=== PATIENT | male | born 2000 | race Caucasian/White ===

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

== ENCOUNTER 2020-10-22 15:24 | Emergency (ER) | payer OTHER ==
[~2020-10-22] VITALS: Ht 175.3 cm; Wt 86.2 kg
[2020-10-22 15:25] VITALS: BP 126/68
--- NOTE | 2020-10-22 15:45 | NUR ---
SEEN AND EXMAINED BY JULIETTE HUMPHREY
[2020-10-22] MEDS ORDERED: IBUP-1955 PO (16:45)
--- NOTE | 2020-10-22 17:18 | NUR ---
Patient discharged to home in stable condition. Written and verbal after care instructions given. Patient verbalizes understanding of instruction.
--- NOTE | 2020-10-22 17:18 | NUR ---
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
== END 2020-10-22 17:19 | disposition home or self-care (01) ==
LOC: ER 15:33
DX: S92.351A Displaced fracture of fifth metatarsal bone, right foot, initial encounter for closed fracture (principal); X50.1XXA Overexertion from prolonged static or awkward postures, initial encounter; Y93.01 Activity, walking, marching and hiking; Y92.89 Other specified places as the place of occurrence of the external cause; Y99.8 Other external cause status
CPT/HCPCS: 73610-TC; 73630-TC

== ENCOUNTER 2021-06-08 22:36 | Emergency (ER) | payer MEDICAID, OTHER ==
[~2021-06-08] VITALS: Ht 177.8 cm; Wt 86.2 kg
[~2021-06-08 22:36] MED LIST: IBUP-1955 PO
[2021-06-08 23:07] VITALS: BP 141/62
--- NOTE | 2021-06-08 23:10 | NUR ---
PT BIBS C/O FEVER,CHILLS, BODY ACHE, HEADACHE AND NO APPETITE X1DAY. PATIENT ALERT AND ORIENTED X3. AMBULATORY WITH NON LABORED BREATHING. PATIENT IN BED 19 ON MONITOR AND POX.
--- NOTE | 2021-06-08 23:14 | NUR ---
COVID AND FLU SWAB DONE AND SENT TO LAB
== END 2021-06-09 00:18 | disposition home or self-care (01) ==
LOC: ER 22:42
DX: B34.9 Viral infection, unspecified (principal); Z20.822 Contact with and (suspected) exposure to COVID-19
CPT/HCPCS: 87426; 87804; 99283; C9803

== ENCOUNTER 2022-03-16 22:28 | Emergency (ER) | payer MEDICAID ==
[~2022-03-16] VITALS: Ht 180.3 cm; Wt 96.6 kg
[2022-03-17] MEDS ORDERED: GUAIFENESIN/D-METHORPHAN HB 5 ML UDC PO ONE
--- NOTE | 2022-03-17 | NUR ---
BIBMOTHER. COUGH AND CONGESTION X 5 DAYS. FEVER X 2 DAYS. AWAKE AND ALERT BREATHING UNLABORED V/S WNL.
[2022-03-17] MEDS ORDERED: GUAIFENESIN/D-METHORPHAN HB 5 ML UDC ONE (00:02)
[2022-03-17] MEDS ORDERED: PSEUDOEPHEDRINE HCL 30 MG TABLET ONE ×2 (00:02→00:04)
--- NOTE | 2022-03-17 00:11 | NUR ---
covid, flu and rsv swab done
[2022-03-17] MEDS ORDERED: PSEUDOEPHEDRINE HCL 30 MG TABLET PO ONE ×2 (00:30)
[2022-03-17] MEDS ORDERED: BENZ-13 PO (01:11)
[2022-03-17] MEDS ORDERED: PSEU120T83 PO (01:11)
[2022-03-17] MEDS ORDERED: GUAI1TBM19 PO (01:11)
--- NOTE | 2022-03-17 01:31 | NUR ---
Patient discharged to home in stable condition. Written and verbal after care instructions given. Patient verbalizes understanding of instruction.
[2022-03-17 01:33] VITALS: BP 121/75
== END 2022-03-17 01:33 | disposition home or self-care (01) ==
LOC: ER 22:32
DX: J10.1 Influenza due to other identified influenza virus with other respiratory manifestations (principal); Z20.822 Contact with and (suspected) exposure to COVID-19
CPT/HCPCS: 99284; 71045; 87426; 87804; 87420; C9803